=== PATIENT | female | born 1960 | race Caucasian/White ===

== ENCOUNTER 2020-03-09 23:22 | Inpatient (IN) | payer BC, SELFPAY ==
--- NOTE | ~2020-03-09 | CT_ITS ---
EXAMINATION: CTA chest DATE: 03/10/2020 01:30 INDICATION: Severe chest pain radiating to the back. TECHNIQUE: Computed tomographic angiography (CTA) of the chest was performed without and with 100 mL Omnipaque-350 intravenous contrast. Automated exposure control and iterative reconstruction technique were employed. The dose-length product was 512.49 mGy-cm. Maximum intensity projection 3D-reconstruc tions of the aorta and other arteries were constructed by the technologist on a separate workstation. COMPARISON: Chest single view 03/09/2020 FINDINGS: There are patchy airspace and groundglass opacities in the lower lobes and posterior aspect s of the upper lobes. No pleural effusion. The heart size is normal. No pericardial effusion. There i s no pulmonary embolus. The thoracic aorta is normal in caliber. No dissection. There are changes of cholecystectomy. There is mild mediastinal lymphadenopathy, likely reactive. There is mild thoracic s pondylosis. IMPRESSION: 1. Patchy airspace and groundglass opacities in the posterior lungs suspicious for atypical pneumonia . 2. Normal thoracic aorta. No pulmonary embolus. Reviewed, dictated and finalized at location A. IMPRESSION: 1. Patchy airspace and groundglass opacities in the posterior lungs suspicious for atypical pneumonia. 2. Normal thoracic aorta. No pulmonary embolus.
--- NOTE | ~2020-03-09 | XR_ITS ---
EXAMINATION: XR chest 2V DATE: 03/12/2020 08:34 INDICATION: Atypical pneumonia. Shortness of breath. Left arm weakness. TECHNIQUE: PA and lateral views of the chest were obtained. COMPARISON: Chest radiograph dated 06/09/[address] dated 03/10/2020 FINDINGS: Significant improvement in the prior opacities in the lower lobes with some reticular opacities at th e lung bases, mild on the left and minimal on the right. No pleural effusion or pneumothorax. The car diomediastinal silhouette is normal. Mild thoracic spondylosis. Cholecystectomy clips in the right up per quadrant. IMPRESSION: 1. Significant improvement in now mild left and minimal right basilar opacities consistent with atele ctasis, pulmonary edema or pneumonia. Reviewed, dictated and finalized at location A. IMPRESSION: 1. Significant improvement in now mild left and minimal right basilar opacities consistent with atelectasis, pulmonary edema or pneumonia.
--- NOTE | ~2020-03-09 | XR_ITS ---
EXAMINATION: XR shoulder LT min 2V DATE: 03/12/2020 08:34 INDICATION: Left scapular area pain. TECHNIQUE: 4 views of left shoulder were obtained. COMPARISON: None. FINDINGS: Bone alignment is normal. No fracture. There is mild osteoarthritis of glenohumeral joint a nd acromioclavicular joint. IMPRESSION: 1. Mild polyarticular osteoarthritis. Reviewed, dictated and finalized at location A.
--- NOTE | ~2020-03-09 | XR_ITS ---
EXAMINATION: XR chest 1V portable DATE: 03/09/2020 23:49 INDICATION: Chest pain. TECHNIQUE: A single frontal view of the chest was obtained. COMPARISON: Chest 2 views 06/29/2018 FINDINGS: There are airspace opacities in the lower lung zones. No pleural effusion or pneumothorax. The heart size is normal. IMPRESSION: 1. Airspace opacities in the lower lung zones suspicious for atypical pneumonia. Reviewed, dictated and finalized at location A. IMPRESSION: 1. Airspace opacities in the lower lung zones suspicious for atypical pneumonia .
--- NOTE | ~2020-03-09 | XR_ITS ---
EXAMINATION: XR cervical spine min 6V DATE: 03/12/2020 08:34 INDICATION: Arm pain and numbness. Pain in left scapular area. TECHNIQUE: 5 views of cervical spine including flexion and extension views were obtained. COMPARISON: None. FINDINGS: There is mild kyphosis of cervical spine. There is 5 degrees dextrocurvature of cervical sp ine. Vertebral body heights and intervertebral disc heights are normal. There is no abnormal motion w ith flexion or extension. There is multilevel facet joint osteoarthritis, moderate to severe on the l eft at C3-C4 and on the right at C4-C5 and C5-C6. No central canal stenosis or prevertebral soft tiss ue swelling. IMPRESSION: 1. Mild cervical spondylosis. Reviewed, dictated and finalized at location A.
[2020-03-09 23:22] VITALS: BP 196/104; PULSE 88; RESP 26; O2SAT 95
[2020-03-09] MEDS: NITROGLYCERIN SL 0.4 MG TABLET SUBLINGUAL (23:35)
--- NOTE | 2020-03-09 23:38 | ECG_ITS ---
Measurements Intervals [place] Rate: 94 P: 47 [place]: 153 QRS: 11 QRSD: 91 T: 19 QT: 363 QTc: 456 Interpretive Statements SINUS RHYTHM RSR' IN V1 OR V2, CONSIDER RIGHT VENTRICULAR HYPERTROPHY OR RIGHT VCD BASELINE ARTIFACT- I, II, III, AVR, AVF BORDERLINE ECG Electronically Signed On 03-10-2020 7:18:49 CDT by Clay Grijalva D.O.
[2020-03-09] MEDS: SODIUM CHLORIDE 0.9% IV 1,000 ML 100 ML IV CONT (23:42)
[2020-03-09] MEDS: ASPIRIN 81 MG CHEWABLE TABLET 324 MG PO (23:42)
[2020-03-09] MEDS: HYDROmorphone HCL 2 MG/ML VIAL 0.5 MG IV PUSH (23:48)
[2020-03-09 23:52] VITALS: BP 196/104; PULSE 91; RESP 16; TEMP 36; O2SAT 95
[2020-03-10] VITALS (9 sets, daily range): BP systolic 104–156; BP diastolic 60–95; PULSE 89–119; RESP 18–22; TEMP 36.7–37.9; O2SAT 94–99; BMI 32.6
--- NOTE | 2020-03-10 00:02 | ECG_ITS ---
Measurements Intervals [place] Rate: 85 P: 37 [place]: 156 QRS: 3 QRSD: 97 T: 6 QT: 394 QTc: 470 Interpretive Statements SINUS RHYTHM RSR' IN V1 OR V2, CONSIDER RIGHT VENTRICULAR HYPERTROPHY OR RIGHT VCD VOLTAGE CRITERIA FOR LVH BORDERLINE ECG Electronically Signed On 03-10-2020 7:18:11 CDT by Clay Grijalva D.O.
--- NOTE | 2020-03-10 00:02 | ED.CHESTPAIN ---
HPI - Chest Pain General Chief Complaint: Chest Pain Stated Complaint: chest pain Source: patient Mode of arrival: ambulatory Limitations: no limitations History of Present Illness HPI narrative: 59 y.o. female developed sharp pain left shoulder radiating to the left arm and hand and to the left side of the neck. This started at 9:30 PM yesterday while playing cards. At about 11 PM she began having intense dull discomfort left side of chest like I was kicked by a horse radiating like an arrow straight into her left upper back. Pain is made worse by inspiration and movement, laying with head of [place] at 30 degrees is the most comfortable. She denies sweating, vomiting, cough, fever, loss of smell. She's had slight nausea. 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 She is followed by an dairy and food laboratory assistant at [facility]; has had the pneumococcal vaccination. She has a hx of GERD but denies reflux symptoms today .She denies recent exertional activity. She had had hypertension x 10 years. No hx of personal or family hx of cardiac disease. She is not sure what medications she takes daily; know's she's on metoprolol. Pt traveled to [place] one week ago for several days. Was with several family members 03/08/2020 who have been self isolating. Related Data Home Medications Medication Instructions Recorded Confirmed Unable to Obtain Home Medications 03/09/20 03/09/20 Allergies Allergy/AdvReac Type Severity Reaction Status Date / Time NITA Inhibitors Allergy Unknown Verified 03/09/20 23:45 Review of Systems Constitutional: Constitutional: Denies chills, Denies fatigue, Denies fever(s) and Denies weakness ENT: Denies dizziness, Denies nasal congestion and Denies sore throat Cardiovascular: Cardiovascular: Reports no additional cardiovascular complaints Comments: No jaw pain. Respiratory: Respiratory: Reports no additional respiratory complaints, Denies chest congestion, Denies cough and Denies wheezing Gastrointestinal: Gastrointestinal: Denies abdominal pain, Denies heartburn, Denies diarrhea and Denies vomiting Genitourinary: Genitourinary: Denies dysuria Musculoskeletal: Musculoskeletal: Reports no additional musculoskeletal complaints and Denies joint swelling Integumentary/Breasts: Skin/Breast: Denies rash Neurologic: Denies headache(s), Denies numbness, Denies tingling and Denies weakness Hematologic/Lymphatic: Hematologic/Lymphatic: Denies easy bruising Comments: no pedal edema Allergic/Immunologic: Allergic/Immunologic: Denies lip swelling and Denies wheezing PMFSH Past Medical History Medical History (Updated 03/10/20 @ 07:53 by Diego Sheehan MD) Carcinoid tumor of gallbladder GERD (gastroesophageal reflux disease) Hyperlipidemia Hypertension IgM deficiency Surgical History Surgical History (Updated 03/10/20 @ 00:53 by Diego Sheehan MD) H/O section H/O: hysterectomy S/P cholecystectomy Family History Family History (Updated 03/10/20 @ 01:10 by Diego Sheehan MD) Mother Pacemaker displacement Social History Social History (Updated 03/10/20 @ 01:12 by Diego Sheehan MD) Smoking status: Never smoker Alcohol intake: never Substance use: never Gender identity (if verbalized by the patient): Female Spiritual care concerns: No Exam Const: Nutritional Appearance: well nourished Orientation/consciousness: patient oriented x3 Other: Appears to be in a lot of pain, groining with each breath. HENMT: Head: normal to inspection Eyes: Conjunctivae: conjunctivae normal Neck: Neck: no lymphadenopathy Chest: Chest palpation & inspection: normal inspection of the chest Other: no chest wall tenderness Resp: Effort & Inspection: able to speak in complete sentences, normal respiratory pattern, no audible wheezes, no cough, respiratory effort not decreased, no grunting, not labored and other (grimaces and stops when attempting to ta
[2020-03-10 00:07] LABS: CRP 1.1 mg/dL (0.0-0.9)
[2020-03-10 00:11] LABS: Basophils Absolute Auto 0.04 K/mm3 (0.00-0.10); Basophils Percent Auto 0.5 % (0.0-1.0); Eosinophils Absolute Auto 0.19 K/mm3 (0.02-0.50); Eosinophils Percent Auto 2.5 % (1.0-6.0); Hematocrit 35.2 % (35.0-49.0); Hemoglobin 11.7 g/dL (12.0-15.0); Immature Granulocyte Absolute 0.02 K/mm3 (0.00-0.00); Immature Granulocyte Percent A 0.3 % (0.0-0.0); Lymphocytes Absolute Auto 3.43 K/mm3 (1.10-4.50); Lymphocytes Percent Auto 44.7 % (18.0-42.0); Mean Corpuscular HGB Conc 33.2 g/dL (32.0-36.0); Mean Corpuscular Hemoglobin 30.6 pg (27.0-31.0); Mean Corpuscular Volume 92.1 fL (78.0-102.0); Mean Platelet Volume 9.2 fl (9.2-11.8); Monocytes Absolute Auto 0.54 K/mm3 (0.10-0.90); Neutrophils Absolute Auto 3.5 K/mm3 (1.7-7.2); Platelet Count Result 278 K/mm3 (150-420); Red Blood Count 3.82 M/mm3 (4.20-5.40); Red Cell Distribution Width 14.8 % (11.6-14.4); White Blood Count 7.7 K/mm3 (4.8-10.8)
[2020-03-10 00:15] LABS: BNP 13 pg/mL (0-100)
[2020-03-10 00:16] LABS: Alanine Aminotransferase 20 U/L (14-59); Albumin Level 3.6 g/dL (3.4-5.0); Alkaline Phosphatase 87 U/L (46-116); Anion Gap 14.3 mmol/L (7-16); Aspartate Amino Transferase 16 U/L (15-37); Bilirubin,Total 0.4 mg/dL (0.00-1.00); Blood Urea Nitrogen 15 mg/dL (7-18); Calcium 8.8 mg/dL (8.5-10.1); Carbon Dioxide 26 mmol/L (21-32); Chloride 102 mmol/L (98-108); Estimated CRCL calculation 72 ml/min; Estimated Glomerular Filt Rate > 60; Glucose 99 mg/dL (70-99); Magnesium 1.8 mg/dL (1.8-2.4); Osmolality Calculated 288 mOsm/kg (285-295); Potassium 3.3 mmol/L (3.5-5.1); Sodium 139 mmol/L (136-145); Troponin I < 0.02 ng/mL (0.00-0.056)
[2020-03-10 00:19] LABS: D Dimer 0.19 mg/L (0.19-0.50)
[2020-03-10] MEDS: HYDROmorphone HCL 2 MG/ML VIAL 0.5 MG IV PUSH (00:36)
[2020-03-10] MEDS: MORPHINE SULFATE 4 MG/ML INJ IV PUSH (01:30)
[2020-03-10 02:27] LABS: Influenza Control Valid (Valid)
[2020-03-10 02:35] LABS: Creatine Kinase 116 U/L (26-192); Ferritin 37 ng/mL (8-252)
[2020-03-10 02:36] LABS: Troponin I < 0.02 ng/mL (0.00-0.056)
[2020-03-10 02:44] LABS: Lactic Acid 1.8 mmol/L (0.4-2.0)
[2020-03-10] MEDS: KETOROLAC 30 MG/ML VIAL (*BKC) IV PUSH (03:44)
[2020-03-10] MEDS: POTASSIUM CHLORIDE 20 MEQ TABLET PO ×3 (03:50→17:11)
--- NOTE | 2020-03-10 03:51 | PC.NURSE ---
After questioning pt. about recent travel, pt. admits now to traveling to [place] about 1 week ago. Pt. originally denied travel, but is tearful now and admits to traveling to high covid area. Pt. resting, no c/o at this time, stable VS.
[2020-03-10 04:29] LABS: Base Excess ABG -2.9 mmol/L (0-2); Device ROOM AIR; Modified Allen's Test Pass; Oxygen Content ABG 16.3 %vol (16.0-22.0); Oxyhemoglobin 93.5 % (94-100); PCO2 ABG 38.8 mmHg (35-45); PO2 ABG 72.2 mmHg (80-90); Site Drawn LEFT RADIAL; Total Hemoglobin 12.4 g/dL; pH ABG 7.37 (7.35-7.45)
[2020-03-10 05:19] LABS: Basophils Absolute Auto 0.03 K/mm3 (0.00-0.10); Basophils Percent Auto 0.2 % (0.0-1.0); Eosinophils Absolute Auto 0.01 K/mm3 (0.02-0.50); Eosinophils Percent Auto 0.1 % (1.0-6.0); Hematocrit 33.8 % (35.0-49.0); Hemoglobin 11.2 g/dL (12.0-15.0); Immature Granulocyte Absolute 0.03 K/mm3 (0.00-0.00); Immature Granulocyte Percent A 0.2 % (0.0-0.0); Lymphocytes Absolute Auto 1.17 K/mm3 (1.10-4.50); Lymphocytes Percent Auto 8.9 % (18.0-42.0); Mean Corpuscular HGB Conc 33.1 g/dL (32.0-36.0); Mean Corpuscular Hemoglobin 30.7 pg (27.0-31.0); Mean Corpuscular Volume 92.6 fL (78.0-102.0); Mean Platelet Volume 8.9 fl (9.2-11.8); Monocytes Absolute Auto 0.73 K/mm3 (0.10-0.90); Monocytes Percent Auto 5.6 % (2.0-11.0); Neutrophils Absolute Auto 11.2 K/mm3 (1.7-7.2); Platelet Count Result 248 K/mm3 (150-420); Red Blood Count 3.65 M/mm3 (4.20-5.40); Red Cell Distribution Width 14.9 % (11.6-14.4); White Blood Count 13.1 K/mm3 (4.8-10.8)
[2020-03-10] MEDS: LACTATED RINGERS 1,000 ML 75 ML IV CONT (05:31)
[2020-03-10 05:34] LABS: Add Urine Microscopic? YES; Appearance Urine Clear (Clear); Bilirubin Urine Negative (Negative); Blood Urine Negative (Negative); Color Urine Yellow (Yellow); Glucose Urine UA Negative (Negative); Ketones Urine Trace (Negative); Leukocyte Esterase Ur Negative (Negative); Nitrate Urine Negative (Negative); Protein Urine Negative (Negative); Specific Grav Ur <= 1.005 (1.010-1.020); Urobilinogen Urine 0.2 mg/dL (0.2-1.0); pH Urine 5.5 (5.0-8.0)
[2020-03-10 05:38] LABS: RBC Urine None seen /hpf (0-2); WBC Urine None seen /hpf (0-3)
[2020-03-10 05:39] LABS: Bacteria Urine None seen /hpf; Mucus Urine None seen /lpf; Squamous Epithelial Cell Urine None seen /hpf (Few)
[2020-03-10 05:40] LABS: Troponin I < 0.02 ng/mL (0.00-0.056)
[2020-03-10 05:48] LABS: Alanine Aminotransferase 20 U/L (14-59); Albumin Level 3.2 g/dL (3.4-5.0); Alkaline Phosphatase 81 U/L (46-116); Anion Gap 14.8 mmol/L (7-16); Aspartate Amino Transferase 17 U/L (15-37); Bilirubin,Total 0.4 mg/dL (0.00-1.00); Blood Urea Nitrogen 12 mg/dL (7-18); Calcium 8.1 mg/dL (8.5-10.1); Carbon Dioxide 24 mmol/L (21-32); Chloride 103 mmol/L (98-108); Estimated CRCL calculation 76 ml/min; Estimated Glomerular Filt Rate > 60; Glucose 149 mg/dL (70-99); Osmolality Calculated 288 mOsm/kg (285-295); Potassium 3.8 mmol/L (3.5-5.1); Sodium 138 mmol/L (136-145); Total Protein 6.6 g/dL (6.4-8.2)
--- NOTE | 2020-03-10 05:56 | ADMGEN ---
This patient, Halina Suh, was admitted to 2nd Floor Room 212-1. Patient oriented to hospital policies and general routines including ID bracelet, bed and alarms, visiting hours, pain management, procedures, bathroom and other care routines, personal items, smoking policy, room service/diet, and visiting hours. Valuables list includes cell phone, wallet with credit cards $169 (counted together with this nurse and patient and patient wanted to keep it with her), clothing and shoes. Information on how to activate the Rapid Response Team has been discussed. Patient are encouraged to report perceived risks to care and to ask questions if they do not understand what they are told or what they should do.
--- NOTE | 2020-03-10 06:00 | ECHO_ITS ---
Patient Info Name: Halina Suh Age: 59 years : 1960 Gender: Female Ht: 65 in Wt: 197 lbs BSA: 2.06 m2 BP: 118 / 76 mmHg Technical Quality: Good Exam Date: 03/10/2020 3:40 PM Exam Location: [facility] Patient Status: Inpatient Admit Date: 03/10/2020 Staff Ordering Physician: Ping Venegas NP Lyft Driver: Massimo Jasmine RDCS Attending Provider: Diego Sheehan MD Referring Physician: Theo DE LA ROSA; Exam Type: CA echo doppler color flow Study Info Indications R07.9 - Chest pain, unspecified Complete two-dimensional, color flow and Doppler transthoracic echocardiogram is performed. History/Risk Factors Chest pain, SOB. Summary 1. Left ventricular chamber dimension is normal. 2. Left ventricular systolic function is normal, estimated at 60-65%. 3. The left ventricular diastolic function is normal. 4. E/e' 9 is minimally elevated. 5. Left atrial chamber dimension is mildly enlarged. 6. There is mild aortic valve sclerosis. 7. There is mild tricuspid valve regurgitation. 8. No pulmonary hypertension, estimated pulmonary arterial systolic pressure is 33 mmHg. Left Ventricle E/e' 9 is minimally elevated. Left ventricular chamber dimension is normal. Left ventricular systolic function is normal, estimated at 60-65%. The left ventricular diastolic function is normal. Right Ventricle Right ventricular chamber dimension is normal. Right ventricular systolic function is normal. Left Atria Left atrial chamber dimension is mildly enlarged. Right Atria Right atrial chamber dimension is normal. Aortic Valve The aortic valve is trileaflet. There is mild aortic valve sclerosis. There is no aortic valve stenosis. There is no aortic valve regurgitation. Pulmonic Valve There is no pulmonic regurgitation. Mitral Valve There is no mitral valve stenosis. There is no mitral valve regurgitation. Tricuspid Valve There is mild tricuspid valve regurgitation. No pulmonary hypertension, estimated pulmonary arterial systolic pressure is 33 mmHg. Pericardium/Pleural There is no pericardial effusion. Inferior Vena Cava Normal inferior vena cava with >50% collapse upon inspiration consistent with normal right atrial pressure, 5 mmHg. Aorta The aortic root size at the sinus of Valsalva is normal. Left Ventricular Outflow Tract Name Value Normal LVOT 2D LVOT Diameter 1.8 cm LVOT Doppler LVOT Peak Velocity 107 cm/s LVOT Peak Gradient 5 mmHg LVOT Mean Gradient 2 mmHg LVOT VTI 18 cm LVOT VTI/AV VTI Ratio 0.6 LVOT Stroke Volume 48 ml Mitral Valve Name Value Normal MV Doppler MV Decel Guthrie 482 cm/s2 MV PHT
--- NOTE | 2020-03-10 06:30 | ECG_ITS ---
Measurements Intervals [place] Rate: 100 P: 50 [place]: 132 QRS: 7 QRSD: 87 T: 21 QT: 355 QTc: 459 Interpretive Statements SINUS TACHYCARDIA EARLY PRECORDIAL R/S TRANSITION VOLTAGE CRITERIA FOR LVH MINIMAL Q WAVES- INFERIOR LEADS ABNORMAL ECG Electronically Signed On 03-10-2020 7:17:35 CDT by Clay Grijalva D.O.
[2020-03-10] MEDS: METOPROLOL SUCCINATE EXT REL 50 MG TABCR PO (08:18)
[2020-03-10] MEDS: PANTOPRAZOLE 40 MG TABLET PO (08:18)
[2020-03-10 08:54] LABS: CRP 1.4 mg/dL (0.0-0.9); Phosphorus 3.5 mg/dL (2.6-4.7)
[2020-03-10 09:13] LABS: BNP 26 pg/mL (0-100)
[2020-03-10 09:14] LABS: Thyroid Stimulating Hormone Reflex 2.52 u/IU/mL (0.36-3.74)
[2020-03-10] MEDS: ACETAMINOPHEN 500 MG TABLET 1000 MG PO ×2 (09:28→17:11)
[2020-03-10] MEDS: LIDOCAINE 5% PATCH 2 PATCH TRANSDERM (09:28)
[2020-03-10 09:32] LABS: Erythrocyte Sedimentation Rate 10 mm/hr (0-20)
--- NOTE | 2020-03-10 11:29 | PM.IMHP ---
H&P: HPI History of Present Illness Chief complaint: bl pneumonia <Ping Venegas, CORE DIPPER - Last Filed: 03/10/20 15:32> Narrative: Halina Suh is a 59 year old female admitted yesterday due to persistent and un-resolving left-sided chest and back pain. ED physician note stated: 59 y.o. female developed sharp pain left shoulder radiating to the left arm and hand and to the left side of the neck. This started at 9:30 PM yesterday while playing cards. At about 11 PM she began having intense dull discomfort left side of chest like I was kicked by a horse radiating like an arrow straight into her left upper back. Pain is made worse by inspiration and movement, laying with head of [place] at 30 degrees is the most comfortable. No decrease in pain after G.I. cocktail. She denies any smoking or COPD history, stated that she has had pneumonia 2-3 times in the past, with the last time in 2011. Continue cardiac monitoring and Cardiac panel testing. EKGs without acute concerns. Today, she told me that the pain started in her posterior left scapular area. She did experience some pain shooting up into her posterior neck area as well. She asked her to massage her shoulder and back, in hopes that would improve her pain. The massage neither made the pain worse or better. Her pain then started to shoot forward through the left side of her chest and spread anteriorly to her left lower chest area. She reports that her left arm has also been numb , with a couple of shooting pains down her left arm. Her numbness is neither anterior or posterior to her arm, just generalized. She denies any recent painting or physical activity or trauma that could have led to this discomfort. She has had a history of a torn rotator cuff to her right shoulder. She denies fevers, sweating, nausea, vomiting, cough, loss of smell, SOB, muscloskeletal pain. Only deep breaths seems to elicit her pain, she denies her pain being musculoskeletal are cardiac in nature. Raising her arms in the air, waving her arms, turning her neck or shoulders, and repositioning does not cause her pain. Halina reports that over the past 2 weeks she and her drove down to [place], [place], [place] the [place] from [place]. They went to [place] to picker / packer a new camper that they had purchased. They then returned back to home, here in [place], by driving the camper back. she stated that they slept and stayed in the camper, denied any hotel visits. She denied having any known COVID interactions. She stated that her has not had a fever or cough, and currently feels well. She did participate in a gathering of about 20 people over the weekend for the 08 of March celebration. 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 She is followed by an stamp pad maker at [facility], has had the pneumococcal vaccination. She has a hx of GERD but denies reflux symptoms today.She denies recent exertional activity. She had had hypertension x 10 years. No hx of personal or family hx of cardiac disease. Will need to call her pharmacy today and get her medication list. Her ABG showed slightly low pO2 level, added 2 L O2 NC for comfort. Continue telemetry monitoring. COVID testing remains pending. CTA scan showed patchy airspace and groundglass opacities in the lower lobes and posterior aspects of the upper lobes. No pleural effusion. The heart size is normal. No pericardial effusion. There is no pulmonary embolus. The thoracic aorta is normal in caliber. No dissection. Mild mediastinal lymphadenopathy, likely reactive. IMPRESSION: 1. Patchy airspace and groundglass opacities in the posterior lungs suspicious for atypical pneumonia. 2. Normal thoracic aorta. No pulmonary embolus. Admitted with pneumonia, chest pain, and hypoxia. <Ping Venegas NP - Last Filed: 03/10/20 15:32> Review of Systems Review of Systems: All systems revie
[2020-03-10 11:49] LABS: Creatine Kinase 84 U/L (26-192)
[2020-03-10 11:50] LABS: Troponin I < 0.02 ng/mL (0.00-0.056)
[2020-03-10] MEDS: ALBUTEROL SULFATE (*SP) INHALER 4 PUFF INHALATION ×3 (12:30→22:00)
--- NOTE | 2020-03-10 12:30 | ECG_ITS ---
Measurements Intervals [place] Rate: 93 P: 32 [place]: 150 QRS: -1 QRSD: 87 T: 9 QT: 355 QTc: 442 Interpretive Statements SINUS RHYTHM EARLY PRECORDIAL R/S TRANSITION VOLTAGE CRITERIA FOR LVH BORDERLINE ECG Electronically Signed On 03-10-2020 12:59:28 CDT by Clay Grijalva D.O.
[2020-03-11] VITALS (9 sets, daily range): BP systolic 122–142; BP diastolic 76–88; PULSE 72–98; RESP 18–20; TEMP 36.6–37.8; O2SAT 94–98
--- NOTE | 2020-03-11 01:05 | PC.NURSE ---
Patient appears to be sleeping by the rise and fall of her chest. Respirations even and unlabored. No distress noted. Call light in reach.
--- NOTE | 2020-03-11 03:05 | PC.NURSE ---
Patient appears to be sleeping by the rise and fall of her chest. Respirations even and unlabored. No distress noted. Call light in reach.
[2020-03-11 05:36] LABS: Basophils Absolute Auto 0.03 K/mm3 (0.00-0.10); Basophils Percent Auto 0.4 % (0.0-1.0); Eosinophils Absolute Auto 0.12 K/mm3 (0.02-0.50); Eosinophils Percent Auto 1.6 % (1.0-6.0); Hematocrit 32.9 % (35.0-49.0); Hemoglobin 10.8 g/dL (12.0-15.0); Immature Granulocyte Absolute 0.02 K/mm3 (0.00-0.00); Immature Granulocyte Percent A 0.3 % (0.0-0.0); Lymphocytes Absolute Auto 2.03 K/mm3 (1.10-4.50); Lymphocytes Percent Auto 26.8 % (18.0-42.0); Mean Corpuscular HGB Conc 32.8 g/dL (32.0-36.0); Mean Corpuscular Hemoglobin 30.2 pg (27.0-31.0); Mean Corpuscular Volume 91.9 fL (78.0-102.0); Mean Platelet Volume 8.9 fl (9.2-11.8); Monocytes Absolute Auto 0.57 K/mm3 (0.10-0.90); Monocytes Percent Auto 7.5 % (2.0-11.0); Neutrophils Absolute Auto 4.8 K/mm3 (1.7-7.2); Neutrophils Percent Auto 63.4 % (50.0-70.0); Platelet Count Result 240 K/mm3 (150-420); Red Blood Count 3.58 M/mm3 (4.20-5.40); Red Cell Distribution Width 15.2 % (11.6-14.4); White Blood Count 7.6 K/mm3 (4.8-10.8)
[2020-03-11 05:51] LABS: Alanine Aminotransferase 16 U/L (14-59); Albumin Level 2.9 g/dL (3.4-5.0); Alkaline Phosphatase 76 U/L (46-116); Anion Gap 13.8 mmol/L (7-16); Aspartate Amino Transferase 17 U/L (15-37); Bilirubin,Total 0.5 mg/dL (0.00-1.00); Blood Urea Nitrogen 8 mg/dL (7-18); Calcium 7.9 mg/dL (8.5-10.1); Carbon Dioxide 26 mmol/L (21-32); Chloride 105 mmol/L (98-108); Estimated CRCL calculation 104 ml/min; Estimated Glomerular Filt Rate > 60; Glucose 103 mg/dL (70-99); Osmolality Calculated 290 mOsm/kg (285-295); Potassium 3.8 mmol/L (3.5-5.1); Sodium 141 mmol/L (136-145); Total Protein 6.5 g/dL (6.4-8.2)
[2020-03-11] MEDS: ENOXAPARIN 40 MG/0.4 ML SYRINGE SUB-Q (09:36)
[2020-03-11] MEDS: hydroCHLOROthiazide 12.5 MG CAPSULE PO (09:37)
[2020-03-11] MEDS: LORATADINE 10 MG TABLET PO (09:37)
[2020-03-11] MEDS: ACETAMINOPHEN 500 MG TABLET 1000 MG PO ×2 (09:37→17:14)
[2020-03-11] MEDS: ASPIRIN 81 MG ENTERIC TABLET PO (09:37)
[2020-03-11] MEDS: atenoloL 25 MG TABLET PO (09:37)
[2020-03-11] MEDS: PANTOPRAZOLE 40 MG TABLET PO (09:37)
[2020-03-11] MEDS: METOPROLOL SUCCINATE EXT REL 50 MG TABCR PO (09:37)
[2020-03-11] MEDS: VALACYCLOVIR HCL 500 MG TABLET PO (09:38)
[2020-03-11] MEDS: POTASSIUM CHLORIDE 20 MEQ TABLET PO ×2 (09:38→17:14)
[2020-03-11] MEDS: LIDOCAINE 5% PATCH 2 PATCH TRANSDERM (09:38)
[2020-03-11] MEDS: ALBUTEROL SULFATE (*SP) INHALER 4 PUFF INHALATION ×4 (09:47→20:56)
--- NOTE | 2020-03-11 10:52 | PC.NURSE ---
Showered herself, denies needs, in chair on the phone, no distress, no cough noted
--- NOTE | 2020-03-11 10:53 | PM.IMPN ---
Progress Note: A&P Assessment and Plan (1) Atypical pneumonia: Code(s): J18.9 - Pneumonia, unspecified organism Status: Acute Assessment and Plan: IMPROVING. CXR 2 view tomorrow treated with IV Azithro and Rocephin. elevated WBC resolved. fever overnight using incentive spirometry, reached 1L volume. Albuterol Inhaler scheduled weaning from Oxygen as tolerated. no cough, no sputum production, blood and urine cultures pending. feeling better today. COVID test results pending. (2) Atypical chest pain: Code(s): R07.89 - Other chest pain Status: Acute Assessment and Plan: RESOLVED. Could be cardiac or respiratory or Musculoskeletal related. chest pain and arm numbness has completely resolved per patient report this morning. cardiac panel and serial trops WNL, Troponin x 4 WNL. EKG wnl. Mild hypokalemia at admission, treated and now resolved. Taking deep breaths today, using IS, getting 1000ml volumes on IS. EKGs without ST elevation or depression, tachycardia shown continue patient's atenolol and HCTZ. improved with Lidocaine patches to left shoulder/arm, scheduled Tylenol orally, [place] PRN. ECHO results WNL, no effusions, no hypertrophy, no congestive heart failure, no congenital defects noted, nor valve disease. D-dimer WNL at 0.19, CRP 1.1, BNP 13, UA clear. no ectopy per continuous cardiac telemetry monitoring for past 24 hours - D/C'd. (3) Hypoxia: Code(s): R09.02 - Hypoxemia Status: Acute Assessment and Plan: RESOLVING. ABG showed pO2 72, low bicarb on room air, O2 sats >94% on RA at admission. added 2 L O2 NC for SOB or comfort, wean per parameters. COVID testing pending to rule out last fevers was 4pm yesterday and midnight. WBC 7.7 at admission, elevated to 13.1 , then 7.6 again today. no productive cough, no chest tightness, no dyspnea, no cough, no crackles or wheezing, denies asthma/smoking/COPD history. chest pain and arm numbness has completely resolved per patient report this morning. (4) Encounter for screening laboratory testing for severe acute respiratory syndrome coronavirus 2 (SARS-CoV-2) in asymptomatic patient: Code(s): Z11.59 - Encounter for screening for other viral diseases Status: Acute Assessment and Plan: COVID rule out pending. at risk due to travel to [place], IgG immunodeficiency, valtrex dosing continued. CBC showed lymph elevated at 44.7 at admission, this has since improved and resolved. 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 she has a history of IgG deficiency and history of chronic sinus infections. no current wounds or sinus infection at this time. her IgG deficiency physician is Dr. Magda Jin at [facility] [phone] I did call and speak with her IgG deficiency physician Dr. Magda Jin office at [facility]. Dr. Magda Jin's nurse did inform Dr. Jin of Halina's current medications, IV antibiotics, her current CT findings, and our treatment interventions. Dr. Dimas was appreciative of the update, added that she had no changes or concerns at this time, and was glad to hear that Halina is feeling better today. CBC results are improving and no acute concerns at this time. 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 Annual monitoring with scans. She will need to follow up with her Corcoid cancer physician and surgeon Dr. Henny Rhoades at [facility] [phone] within March or April with her repeat radiology studies. ordered left shoulder xrays for tomorrow to rule out lesions/growths/arthritis/non-traumatic fracture. Subjective Date/time seen: 03/11/20 10:53 Halina
[2020-03-11 14:58] LABS: SARS-CoV-2 RNA PCR Negative
--- NOTE | 2020-03-11 15:37 | PC.NURSE ---
Ambulated from room 212 to 227, no distress, negative covid test, mask on while in [address], no distress, no cough
[2020-03-12] VITALS: BP 112/75; PULSE 79; RESP 20; TEMP 36.9; O2SAT 96
[2020-03-12 04:00] VITALS: BP 123/83; PULSE 78; RESP 18; TEMP 36.5; O2SAT 95
[2020-03-12 05:02] LABS: Basophils Absolute Auto 0.05 K/mm3 (0.00-0.10); Basophils Percent Auto 0.8 % (0.0-1.0); Eosinophils Absolute Auto 0.32 K/mm3 (0.02-0.50); Eosinophils Percent Auto 4.9 % (1.0-6.0); Hematocrit 34.2 % (35.0-49.0); Hemoglobin 11.2 g/dL (12.0-15.0); Immature Granulocyte Absolute 0.02 K/mm3 (0.00-0.00); Immature Granulocyte Percent A 0.3 % (0.0-0.0); Lymphocytes Absolute Auto 2.41 K/mm3 (1.10-4.50); Lymphocytes Percent Auto 37.2 % (18.0-42.0); Mean Corpuscular HGB Conc 32.7 g/dL (32.0-36.0); Mean Corpuscular Hemoglobin 30.3 pg (27.0-31.0); Mean Corpuscular Volume 92.4 fL (78.0-102.0); Mean Platelet Volume 9.1 fl (9.2-11.8); Monocytes Absolute Auto 0.56 K/mm3 (0.10-0.90); Monocytes Percent Auto 8.7 % (2.0-11.0); Neutrophils Absolute Auto 3.1 K/mm3 (1.7-7.2); Neutrophils Percent Auto 48.1 % (50.0-70.0); Platelet Count Result 275 K/mm3 (150-420); Red Cell Distribution Width 15.2 % (11.6-14.4); White Blood Count 6.5 K/mm3 (4.8-10.8)
[2020-03-12 05:20] LABS: Alanine Aminotransferase 21 U/L (14-59); Albumin Level 3.1 g/dL (3.4-5.0); Alkaline Phosphatase 82 U/L (46-116); Anion Gap 13.1 mmol/L (7-16); Aspartate Amino Transferase 19 U/L (15-37); Bilirubin,Total 0.2 mg/dL (0.00-1.00); Blood Urea Nitrogen 11 mg/dL (7-18); Calcium 8.6 mg/dL (8.5-10.1); Carbon Dioxide 26 mmol/L (21-32); Chloride 106 mmol/L (98-108); Estimated CRCL calculation 83 ml/min; Estimated Glomerular Filt Rate > 60; Glucose 104 mg/dL (70-99); Osmolality Calculated 291 mOsm/kg (285-295); Potassium 4.1 mmol/L (3.5-5.1); Sodium 141 mmol/L (136-145); Total Protein 6.9 g/dL (6.4-8.2)
[2020-03-12] MEDS: PROMETHAZINE HCL 25 MG TABLET PO (05:38)
--- NOTE | 2020-03-12 07:12 | PM.EVENT ---
Event Note Event Note Event Note: For 03/11/20: I have examined the patient and reviewed the chart. I discussed the patient's care the with A Theo MANNING and agree with her assessment and plan.
[2020-03-12 08:00] VITALS: BP 130/80; PULSE 70; PULSE 98; RESP 16; TEMP 36.6; O2SAT 98
[2020-03-12] MEDS: ALBUTEROL SULFATE (*SP) INHALER 4 PUFF INHALATION (09:15)
[2020-03-12] MEDS: ENOXAPARIN 40 MG/0.4 ML SYRINGE SUB-Q (09:25)
[2020-03-12] MEDS: LIDOCAINE 5% PATCH 2 PATCH TRANSDERM (09:25)
[2020-03-12 09:26] VITALS: PULSE 88
[2020-03-12] MEDS: atenoloL 25 MG TABLET PO (09:26)
[2020-03-12] MEDS: ACETAMINOPHEN 500 MG TABLET 1000 MG PO (09:26)
[2020-03-12] MEDS: hydroCHLOROthiazide 12.5 MG CAPSULE PO (09:26)
[2020-03-12] MEDS: VALACYCLOVIR HCL 500 MG TABLET PO (09:26)
[2020-03-12] MEDS: POTASSIUM CHLORIDE 20 MEQ TABLET PO (09:26)
[2020-03-12] MEDS: ASPIRIN 81 MG ENTERIC TABLET PO (09:26)
[2020-03-12] MEDS: LORATADINE 10 MG TABLET PO (09:27)
[2020-03-12] MEDS: PANTOPRAZOLE 40 MG TABLET PO (09:27)
--- NOTE | 2020-03-12 11:36 | PM.DS ---
DS: Admitting Diagnosis Admitting Diagnosis Admitting Diagnosis: Pneumonia, unspecified organism DS: Discharge Diagnosis Discharge Diagnosis (1) Atypical pneumonia: Code(s): J18.9 - Pneumonia, unspecified organism Status: Acute Assessment and Plan: IMPROVING. CXR today showed significant improvement treated with IV Azithro and Rocephin. continued with oral Zithromax and cefdinir at discharge elevated WBC resolved. no fevers for the last 24 hours using incentive spirometry, reached 1L volume yesterday and then today reaching 2 L. Albuterol Inhaler scheduled weaned from Oxygen as tolerated. no cough, no sputum production, blood and urine cultures with no growth feeling better today and wants to go. COVID test results negative (2) Atypical chest pain: Code(s): R07.89 - Other chest pain Status: Acute Assessment and Plan: RESOLVED. Could be cardiac or respiratory or Musculoskeletal related. chest pain and arm numbness has completely resolved per patient report this morning. cardiac panel and serial trops WNL, Troponin x 4 WNL. EKG wnl. Mild hypokalemia at admission, treated and now resolved. Taking deep breaths today, using IS, getting 1000ml volumes on IS. EKGs without ST elevation or depression, tachycardia shown continue patient's atenolol and HCTZ. improved with Lidocaine patches to left shoulder/arm, scheduled Tylenol orally, [place] PRN. ECHO results WNL, no effusions, no hypertrophy, no congestive heart failure, no congenital defects noted, nor valve disease. D-dimer WNL at 0.19, CRP 1.1, BNP 13, UA clear. no ectopy per continuous cardiac telemetry monitoring for past 24 hours - D/C'd. may be related to cervical osteoarthritis (3) Hypoxia: Code(s): R09.02 - Hypoxemia Status: Acute Assessment and Plan: RESOLVed ABG showed pO2 72, low bicarb on room air, O2 sats >94% on RA at admission. added 2 L O2 NC for SOB or comfort, wean per parameters. COVID testing pending to rule out last fevers was 4pm yesterday and midnight. WBC 7.7 at admission, elevated to 13.1 , then 7.6 again today. no productive cough, no chest tightness, no dyspnea, no cough, no crackles or wheezing, denies asthma/smoking/COPD history. chest pain and arm numbness has completely resolved per patient report this morning. (4) Encounter for screening laboratory testing for severe acute respiratory syndrome coronavirus 2 (SARS-CoV-2) in asymptomatic patient: Code(s): Z11.59 - Encounter for screening for other viral diseases Status: Acute Assessment and Plan: COVID negative at risk due to travel to [place], IgG immunodeficiency, valtrex dosing continued. CBC showed lymph elevated at 44.7 at admission, this has since improved and resolved. 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 she has a history of IgG deficiency and history of chronic sinus infections. no current wounds or sinus infection at this time. her IgG deficiency physician is Dr. Magda Jin at [facility] [phone] I did call and speak with her IgG deficiency physician Dr. Magda Jin office at [facility]. Dr. Magda Jin's nurse did inform Dr. Jin of Halina's current medications, IV antibiotics, her current CT findings, and our treatment interventions. Dr. Dimas was appreciative of the update, added that she had no changes or concerns at this time, and was glad to hear that Halina is feeling better today. CBC results are improving and no acute concerns at this time. advised her to currently hold the Biaxin while she takes her azithromycin and cefdinir, she may restart the Biaxin after her other antibiotics have completed. (6) Carcinoid tumor of gallbladder: Code
== END 2020-03-12 13:00 | disposition home or self-care (01) | DRG 194 ==
LOC: CHSED 03-10 02:56 → CHS2ND 03-10 04:00
PROVIDERS: Nurse Practitioner; Admitting Provider Family Medicine; Emergency Provider Family Medicine; PCP Family Medicine; Visit Provider Family Medicine
DX: J18.9 Pneumonia, unspecified organism (principal); D80.3 Selective deficiency of immunoglobulin G [IgG] subclasses; Z20.828 Contact with and (suspected) exposure to other viral communicable diseases; R07.9 Chest pain, unspecified; R09.02 Hypoxemia; D3A.098 Benign carcinoid tumors of other sites; K21.9 Gastro-esophageal reflux disease without esophagitis; E78.5 Hyperlipidemia, unspecified; I10 Essential (primary) hypertension
CPT/HCPCS: 36415; 36600; 71045; 71046; 71275; 72052; 73030; 80053; 81001; 82550; 82553; 82728; 82805; 83605; 83735; 83880; 84100; 84443; 84484; 85025; 85380; 85610; 85652; 85730; 86140; 87040; 87086; 87088; 87635; 87804; 93005; 93306; 96361; 96365; 96366; 96367; 96372; 96374; 96375; 99285; A9270; C9803; G0378; J0456; J0696; J1170; J1650; J1885; J2270; J7030; J7120; Q9965; U0003

== ENCOUNTER 2020-04-23 12:40 | Outpatient (CLI) | payer BC, SELFPAY ==
[2020-04-26 23:49] LABS: Immunoglobulin A 315 mg/dL (47-310); Immunoglobulin G 863 mg/dL (600-1640); Immunoglobulin M 21 mg/dL (50-300)
[2020-04-30 01:54] LABS: Immunoglobulin E 38 kU/L (<=114)
== END 2020-04-23 12:41 | disposition home or self-care (01) ==
PROVIDERS: PCP Family Medicine
DX: D80.4 Selective deficiency of immunoglobulin M [IgM] (principal); B99.9 Unspecified infectious disease
CPT/HCPCS: 36415; 82784; 82785; 86317

== ENCOUNTER 2022-01-17 10:50 | Emergency (ER) | payer BC, SELFPAY ==
[2022-01-17 11:01] VITALS: BP 132/89; PULSE 80; RESP 16; TEMP 36.1; O2SAT 93
--- NOTE | 2022-01-17 11:53 | ED.ALLEREA ---
HPI - Allergic Reaction General Chief complaint: Allergic Reaction Stated complaint: allergic reaction to something on face Time Seen by Provider: 01/17/22 10:54 Source: patient and RN notes reviewed Mode of arrival: ambulatory Limitations: no limitations History of Present Illness MD complaint: allergic reaction and facial swelling Onset (ago): hour(s) (6) Exposure: unknown Symptoms: lip swelling and other (no tongue swelling, swallowing difficulty or wheezing) Severity: mild Treatment prior to arrival: benadryl Previous Allergic Reaction History: other (seasonal) Related Data Home Medications Medication Instructions Recorded Confirmed atenolol 25 mg tablet 25 mg PO DAILY 03/10/20 01/17/22 cetirizine 10 mg tablet 10 mg PO DAILY 03/10/20 01/17/22 hydrochlorothiazide 12.5 mg tablet 12.5 mg PO DAILY 03/10/20 01/17/22 valacyclovir 500 mg tablet 500 mg PO DAILY 03/10/20 01/17/22 Allergies Allergy/AdvReac Type Severity Reaction Status Date / Time NITA Inhibitors Allergy Unknown Verified 01/17/22 11:05 Review of Systems Review of Systems: All systems reviewed & are unremarkable except as noted in HPI and below Constitutional: Constitutional: Reports no additional constitutional complaints Eyes: Eyes: Reports no additional eye complaints ENT: Reports system reviewed and no additional complaints, except as documented Cardiovascular: Cardiovascular: Reports no additional cardiovascular complaints Respiratory: Respiratory: Reports no additional respiratory complaints Gastrointestinal: Gastrointestinal: Reports no additional gastrointestinal complaints Genitourinary: Genitourinary: Reports no additional female genitourinary complaints Musculoskeletal: Musculoskeletal: Reports no additional musculoskeletal complaints Integumentary/Breasts: Skin/Breast: Reports system reviewed and no additional complaints, except as docu Neurologic: Reports system reviewed and no additional complaints, except as documented Psychiatric: Psychiatric: Reports no additional psychiatric complaints Endocrine: Endocrine: Reports no additional endocrine complaints Hematologic/Lymphatic: Hematologic/Lymphatic: Reports no additional hematologic/lymphatic complaints Allergic/Immunologic: Allergic/Immunologic: Reports no additional allergic/immunologic complaints [facility] Past Medical History Medical History (Updated 02/09/22 @ 10:23 by Duke García MD) Angioedema Carcinoid tumor of gallbladder GERD (gastroesophageal reflux disease) Hyperlipidemia Hypertension IgM deficiency Surgical History Surgical History H/O section H/O: hysterectomy S/P cholecystectomy Family History Family History Mother Pacemaker displacement Social History Social History Smoking status: Never smoker Alcohol intake: never Substance use: never Gender identity (if verbalized by the patient): Female Spiritual care concerns: No Exam Const: General: healthy appearing and no acute distress Nutritional Appearance: well nourished Orientation/consciousness: patient oriented x3 Limitations: no limitations HENMT: Head: normal to inspection Ears: external ears normal, TM's normal bilaterally and EAC's normal General nose exam: Normal external nose present and Normal nares present Face and sinus: normal facial exam and sinuses nontender Mouth: Yes Normal oral and palatal mucosa present, Yes lip normal (mild right upper lip swelling. no other acute oropharyngeal abnormality. ) and Yes moist mucous membranes Teeth and gingiva: dentition normal Throat: posterior oropharynx normal Eyes: Conjunctivae: conjunctivae normal Pupils: Equal, round and reactive pupils present EOM: EOMs intact bilaterally Neck: Neck: normal visual inspection, no lymphadenopathy and no meningeal signs C
[2022-01-17] MEDS: methylPREDNISolone SOD SUCC 125 MG VIAL IM (11:57)
[2022-01-17] MEDS: diphenhydrAMINE HCl CAP 25 MG CAPSULE 50 MG PO (11:57)
[2022-01-17] MEDS: EPINEPHrine HCL INJ 1 MG/ML AMPUL 0.3 MG IM (11:57)
[2022-01-17 12:34] VITALS: BP 140/84; PULSE 78; RESP 16; TEMP 36.1; O2SAT 98
== END 2022-01-17 12:36 | disposition home or self-care (01) ==
PROVIDERS: Emergency Provider Emergency Medicine; PCP Family Medicine
DX: T78.3XXA Angioneurotic edema, initial encounter (principal); T78.40XA Allergy, unspecified, initial encounter
CPT/HCPCS: 96372; 99284; A9270; J0171; J2930

== ENCOUNTER 2023-05-19 12:00 | Outpatient (RCR) | payer BC, SELFPAY ==
--- NOTE | 2023-05-12 09:02 | PTOPEVAL1 ---
Assessment and note entered by Gomez Olivas Evaluation Information Assessment Status Evaluation Diagnosis dizziness Onset 04/11/23 Subjective Information Pt. reports she developed dizziness about 1 month ago. She reports that she will lose her balance. She notices that the dizziness is most notable with turning in bed or getting out of bed. She will get increased dizziness with reaching to the floor. She describes her dizziness as extreme spinning. She reports that the spinning will last 5-10 minutes. She reports that she enjoys caring for her yard and gardening and notices that the dizziness affects her ability to participate in these activities. She reports that her goal is to decrease her dizziness. She reports that she does utilize BP medication. Reported Pain Level Pain Score 0: Self Report Assessment PT Clinical Summary Pt. is a 62 year old female who enters the clinic due to developed dizziness. Pt. presents with positive [place] Halpike Manuever to the right. she is educated regarding performance of the home Fanta Manuever. Continued skilled PT is indicated in order to reduce dizziness to allow for improved safety and comfort with IADL's. Plan of Care Interventions Patient/Caregiver Educati Other Interventions canalith repositioning PT Services Indicated Yes Treatment Frequency and 1x/week for 2 additional visits Duration These treatments will address the objective and functional deficits as defined above. The patient will be advanced safely and appropriately in order for the patient to progress towards his/her prior level of function. Additional exercises will be introduced and as well as a comprehensive home exercise program upon discharge, if needed, ?to ensure carryover of functional gains achieved in the clinic. This treatment plan has been reviewed and agreement upon by the patient.
--- NOTE | 2023-05-12 09:04 | OPREHPOC ---
Outpatient Therapy Plan of Care This is a Multidisciplinary Plan of Care that may contain components documented by all disciplines (PT, OT, and ST.) PT Problem 1 PT Problem #1 Knowledge Deficit PT Goal 1 Goal Pt. will be independent with the home Fanta Petit. Target Visit 2 PT Problem 2 PT Problem #2 Impaired Vestibular Syste PT Goal 1 Goal Pt. will report no episode of dizziness in a 1 week period Target Visit 3 PT Problem 3 PT Problem #3 Impaired Vestibular Syste PT Goal 1 Goal Less than 20% limitation noted with the DHI.
--- NOTE | 2023-07-18 13:50 | PTOPDC ---
Assessment and note entered by Rishabh Way, PT Evaluation Information Assessment Status Discharge - Pt Not Presen Diagnosis dizziness Onset 04/11/23 Subjective Information Pt. reports she developed dizziness about 1 month ago. She reports that she will lose her balance. She notices that the dizziness is most notable with turning in bed or getting out of bed. She will get increased dizziness with reaching to the floor. She describes her dizziness as extreme spinning. She reports that the spinning will last 5-10 minutes. She reports that she enjoys caring for her yard and gardening and notices that the dizziness affects her ability to participate in these activities. She reports that her goal is to decrease her dizziness. She reports that she does utilize BP medication. Assessment PT Clinical Summary Patient has failed to return to therapy and will be discharged at this time. Please refer to last treatment note for discharge status. Plan of Care PT Services Indicated Yes
== END 2023-07-19 08:38 | disposition home or self-care (01) ==
LOC: ANHPT 12:00
PROVIDERS: PCP Family Medicine; Visit Provider Otolaryngology
DX: H81.11 Benign paroxysmal vertigo, right ear (principal)
CPT/HCPCS: 95992; 97112; 97161